=== PATIENT | male | born 1945 | race Caucasian/White ===

== ENCOUNTER 2019-03-18 08:51 | Day surgery (SDC) | payer MEDICARE, OTHER ==
[~2019-03-18] VITALS: Ht 167.6 cm; Wt 69.0 kg
[~2019-03-18 08:51] MED LIST: ALBU18HF INHALATION; AMLO2.5T78 PO; ASPI-903 PO; BUDE6HFA INHALATION; CHOL100062 PO; DICL50TA11 PO; FINA5TAB4 PO; GABA100C14 PO; LOSA25TA12 PO; RANI300T PO; TAMS-14 PO; TRAM50TA2 PO
[2019-03-18 10:29] VITALS: Ht 167.6 cm; Wt 69.0 kg
--- NOTE | 2019-03-18 10:42 | PREAC ---
Date/Time of Note Date/Time of Note DATE: 03/18/19 TIME: 10:39 Anesthesia Eval and Record Evaluation Time Pre-Procedure Interview DATE: 03/18/19 TIME: 10:39 Age 73 Sex male NPO: 8 hrs Preoperative diagnosis Abdominal pain, colon screening Planned procedure EGD, Colonoscopy Past Medical History Past Medical History: Includes Cardio: HTN Pulm: COPD, Asthma Musculoskeletal: Osteoarthritis GI: Obesity Surgery & Anesthesia Issues No known issue Meds Anticoagulation: No Beta Jesus Alberto within 24 hr: No Reason Beta Jesus Alberto not given: Pt. not on B-Jesus Alberto Meds reviewed: Yes Allergies Coded Allergies: Penicillins (Verified Allergy, Unknown, 03/18/19) Allergies Reviewed: Yes Labs/Studies Labs Reviewed: Reviewed by anesthesiologist test: N/A Studies: ECG Pre-procedure Exam Last vitals BP:128/67, P:78, Spo2:100%, T:98,7 Airway: Adequate mouth opening, Adequate thyromental dist Mallampati: Mallampati II Teeth: Normal Lung: Normal Heart: Normal ASA Physical Status ASA physical status: 3 Emergency: None Planned Anesthetic General/MAC: MAC Planned Pain Management Parenteral pain med Pre-operative Attestations Prior to commencing anesthesia and surgery, the patient was re-evaluated, there was verification of: *The patient's identity *The results of appropriate recent lab work and preoperative vital signs *The above evaluation not changing prior to induction *Anesthetic plan, risk benefits, alternative and complications discussed with patient/family; questions answered; patient/family understands, accepts and wishes to proceed. TORI MARCUM MD Mar 18, 2019 10:42
[2019-03-18] MEDS ORDERED: PROPOFOL 200 MG INJ ONE (10:43)
[2019-03-18] MEDS ORDERED: PROPOFOL 60 ML ONE (10:43)
[2019-03-18] MEDS ORDERED: LIDOCAINE 2% (SDV) 5 ML INJ ONE (10:43)
[2019-03-18 10:50] VITALS: BP 161/81; PULSE 74; RESP 18
--- NOTE | 2019-03-18 11:23 | PAC ---
Date/Time of Note Date/Time of Note DATE: 03/18/19 TIME: 11:22 Post-Anesthesia Notes Post-Anesthesia Note Activity: WNL Respiratory function: WNL Cardiovascular function: WNL Mental status: Baseline Pain reasonably controlled: Yes Hydration appropriate: Yes Nausea/Vomiting absent: Yes Comments BP:112/56, P:72, Spo2;100%, T:98,4 TORI MARCUM MD Mar 18, 2019 11:23
[2019-03-18 11:47] VITALS: BP 140/70; PULSE 66; RESP 18
== END 2019-03-18 14:24 | disposition home or self-care (01) ==
LOC: GIL 08:51
PROVIDERS: ATTEND Internal Medicine Gastroenterology
DX: K64.8 Other hemorrhoids (principal); K57.30 Diverticulosis of large intestine without perforation or abscess without bleeding; K44.9 Diaphragmatic hernia without obstruction or gangrene; K21.0 Gastro-esophageal reflux disease with esophagitis; I10 Essential (primary) hypertension; J44.9 Chronic obstructive pulmonary disease, unspecified
CPT/HCPCS: 88305